=== PATIENT | male | born 1990 | race Caucasian/White ===

== ENCOUNTER 2020-08-01 14:06 | Outpatient (REF) | payer OTHER, SELFPAY ==
[2020-08-01 15:08] LABS: MANUAL DIFF FLAG NO
[2020-08-01 15:16] LABS: Basophils Percent Auto 0.2 % (0-2); Eosinophils Percent Auto 0.5 % (0-4); Hematocrit 38.7 % (42-52); Imm Gran Abs Auto 0.01 X10*3/uL (0.00-0.03); Imm Gran Pct Auto 0.2 % (0.0-0.4); Lymphocytes Absolute Auto 2.3 X10*3/uL (1.2-4.9); Mean Corpuscular HGB Conc 33.6 g/dl (31.0-36.0); Mean Corpuscular Volume 86.2 fL (80-98); Mean Platelet Volume 11.4 fL (9.4-12.4); Monocytes Absolute Auto 0.4 X10*3/uL (0.1-1.2); Monocytes Percent Auto 6.3 % (2-11); Neutrophils Absolute Auto 3.7 X10*3/uL (2.0-8.3); Neutrophils Percent Auto 56.8 % (45-73); Platelet Count 228 X10*3/uL (160-400); Red Blood Count 4.49 X10*6/uL (4.60-5.80); Red Cell Distribution Width 12.8 % (11.0-16.0); White Blood Count 6.5 X10*3/uL (4.8-10.8)
[2020-08-01 15:40] LABS: Appearance Urine CLEAR; Color Urine YELLOW; Glucose Urine UA NEG (NEG); Leukocyte Esterase Urine NEG (NEG); Nitrite Urine NEG (NEG); Specific Gravity - Urine >= 1.030 (1.005-1.025); Urine Blood NEG (NEG); Urine Ketones NEG (NEG); Urine Protein NEG (NEG-TRACE)
[2020-08-01 15:51] LABS: Anion Gap 12 (12-20); Blood Urea Nitrogen 18 mg/dL (9-16); C Reactive Protein 0.15 mg/dL (< or = 0.50); Calcium 9.4 mg/dL (8.4-10.2); Carbon Dioxide 28 mmol/L (22-29); Chloride 103 mmol/L (96-108); Estimated Glomerular Filt Rate > 60; Phosphorus 4.6 mg/dL (2.7-4.5); Potassium 4.8 mmol/L (3.3-5.1); Sodium 138 mmol/L (135-145)
[2020-08-01 16:00] LABS: Renal w Reflex Lab Use Only Order verified
[2020-08-01 16:19] LABS: Creatinine Urine 279.37 mg/dL; Microalbum/Creatinine Ratio Ur 10.7 ug/mg cr; Protein/Creatinine Ratio, Ur 0.06 (<0.2); Total Protein Urine Random 16 mg/dL (<12)
[2020-08-01 16:23] LABS: Erythrocyte Sedimentation Rate 21 MM/HR (0-15)
[2020-08-04 13:52] LABS: Complement C3 113 mg/dL (82-185); IgA 654 mg/dL (47-310); IgG 2023 mg/dL (600-1640); IgM 71 mg/dL (50-300)
[2020-08-04 14:17] LABS: Myeloperoxidase Antibody <1.0 AI; Proteinase 3 PR3 Antibodies <1.0 AI
[2020-08-04 15:27] LABS: Anti Nuclear Antibody Screen NEGATIVE (NEGATIVE)
[2020-08-04 22:57] LABS: Immunoglobulin G Subclass 1 926 mg/dL (382-929); Immunoglobulin G Subclass 2 786 mg/dL (241-700); Immunoglobulin G Subclass 3 203 mg/dL (22-178); Immunoglobulin G Total 1969 mg/dL (600-1640)
[2020-08-07 12:46] LABS: HLA B27 Negative (Negative)
== END 2020-08-01 14:07 | disposition home or self-care (01) ==
LOC: HO.LAB 14:06
PROVIDERS: Visit Provider Internal Medicine Nephrology
DX: I15.9 Secondary hypertension, unspecified (principal); E55.9 Vitamin D deficiency, unspecified; Z87.442 Personal history of urinary calculi
CPT/HCPCS: 36415; 80051; 81003; 82043; 82310; 82565; 82784; 84100; 84156; 84520; 85025; 85652; 86021; 86038; 86039; 86140; 86160; 86334; 86812

== ENCOUNTER 2020-08-05 10:34 | Outpatient (REF) | payer OTHER, SELFPAY ==
--- NOTE | ~2020-08-05 | US_ITS ---
EXAMINATION: US RETROPERITONEAL LIMITED (RENAL ONLY) CLINICAL INFORMATION: Nephrolithiasis. COMPARISON: CTA abdomen 07/23/2020. Renal ultrasound with bladder 08/02/2019. CT abdomen and pelvis 08/25/2018. TECHNIQUE: Real-time imaging of the kidneys. FINDINGS: RIGHT KIDNEY: 10.4 x 6.1 x 6.1 cm (SAG x AP x TRV). The kidney is normal in size, contour, and echogenicity. Renal cortical thickness is normal. No calculi or focal parenchymal lesions. No hydronephrosis. LEFT KIDNEY: 11.0 x 4.9 x 5.5 cm (SAG x AP x TRV). The kidney is normal in size, contour, and echogenicity. Renal cortical thickness is normal. No calculi or focal parenchymal lesions. No hydronephrosis. US/US renal BI IMPRESSION: Normal ultrasound. No ultrasound evidence of stones. No evidence of renal obstruction.
== END 2020-08-05 10:35 | disposition home or self-care (01) ==
LOC: HO.US 10:34
PROVIDERS: Visit Provider Urology
DX: N20.0 Calculus of kidney (principal); M31.4 Aortic arch syndrome [Takayasu]; M33.00 Juvenile dermatomyositis, organ involvement unspecified
CPT/HCPCS: 76775; 99212

== ENCOUNTER 2020-08-15 10:03 | Emergency (ER) | payer OTHER, SELFPAY ==
--- NOTE | ~2020-08-15 | XR_ITS ---
EXAMINATION: XR CHEST CLINICAL INFORMATION: Cough, fever COMPARISON: Chest radiograph 11/09/2011 TECHNIQUE: Portable upright AP view of the chest was obtained. FINDINGS: The lungs are clear. There is no airspace consolidation or groundglass opacity or effusion. The heart is normal in size. The vascularity is normal. The hilar and mediastinal contours and bony structures are unremarkable. XR/XR chest 1V IMPRESSION: Normal chest.
[2020-08-15 10:17] VITALS: BP 140/79; PULSE 93; RESP 16; TEMP 36.8; O2SAT 97; BMI 27.4
[2020-08-15 11:37] LABS: Influenza A PCR NEGATIVE (Negative); Influenza B PCR NEGATIVE (Negative); Resp Syncy Virus RNA Qual PCR NEGATIVE (Negative); SARS COV2 PCR INHOUSE POSITIVE (Negative)
--- NOTE | 2020-08-15 11:42 | ED.GENADULT ---
HPI - General Adult General Chief complaint: General Medical Stated complaint: FEVER COUGH BODY ACHES Time Seen by Provider: 08/15/20 10:43 Source: patient Mode of arrival: ambulatory Limitations: no limitations History of Present Illness HPI narrative: 30-year-old below noted past medical history presenting with now day 2 of body aches, runny nose, chills and congestion with mild cough today. Does not know of any overt COVID contacts however he has flu in the past and feels like that. There is no chest pain, abdominal pain, nausea or vomiting did have 1 episode of diarrhea this morning. Onset (ago): day(s) Severity: moderate Quality: aching Pain Consistency: intermittent Relieving factors: none Exacerbating factors: none Treatments prior to arrival: none Related Data Home Medications Medication Instructions Recorded Confirmed amlodipine 10 mg tablet 10 mg PO DAILY 08/05/20 chlorthalidone 25 mg tablet 25 mg PO DAILY 08/05/20 losartan 100 mg tablet 100 mg PO DAILY 08/05/20 metoprolol tartrate 25 mg tablet 25 mg PO DAILY 08/05/20 prednisone 20 mg tablet 60 mg PO DAILY tab 08/05/20 08/05/20 pyridoxine (vitamin B6) 50 mg 50 mg PO DAILY 08/05/20 capsule Previous Rx's Medication Instructions Recorded azithromycin [Zithromax Z-Oswald] 250 mg PO DAILY 5 Days #6 tab 08/15/20 Allergies Allergy/AdvReac Type Severity Reaction Status Date / Time lisinopril Allergy Unknown cough Verified 11/12/19 00:00 No Known Allergies Allergy Unverified 03/13/20 16:16 [No Known Allergies*] N.K.D.A Allergy Unknown Uncoded 08/16/19 00:00 Review of Systems Review of Systems: Constitutional: No Weight loss, No Fever, No Chills, No Night Sweats, No Fatigue, No Malaise ENT/Mouth: No Hearing loss, No Ear Pain, + Nasal Congestion, No Sinus Pain, No Hoarseness, No sore throat, + Rhinorrhea, No Swallowing Difficulty Eyes: No Eye Pain, No Swelling, No Redness, No Foreign Body, No Discharge, No Vision Changes Cardiovascular: No Chest Pain, No SOB, No Dyspnea on Exertion, No Orthopnea, No Edema, No Palpitations Respiratory: N+ mild dry cough, No Sputum, No Wheezing, No Dyspnea Gastrointestinal: No Nausea, No Vomiting, No Diarrhea, No Constipation, No abdominal Pain, No Hematochezia, No Melena Genitourinary: No Urinary Frequency, No Hematuria, No Urinary Incontinence, No Urgency, No Flank Pain, No Urinary Flow Changes, No Hesitancy Musculoskeletal: No joint pain, + Myalgias, No Joint Swelling Skin: No Skin Lesions, No rash Neuro: No Weakness, No Numbness, No Paresthesias, No Loss of Consciousness, No Dizziness, No Headache Psych: No Social Issues Heme/Lymph: No Bruising, No Bleeding,No Lymphadenopathy Endocrine: No Polyuria, No Polydipsia, No Temperature Intolerance Yes all other systems are reviewed and are negative [facility] Past Medical History Medical History (Updated 08/15/20 @ 11:52 by Wally Tovar NP) HTN (hypertension) Juvenile dermatomyositis Kidney stones Family History Family History (Updated 08/05/20 @ 13:38 by Dione Bettencourt CMA) Father HTN (hypertension) Diabetes Social History Social History (Updated 08/05/20 @ 13:39 by Dione Bettencourt CMA) Alcohol intake: current Smoking Status: Current every day smoker Tobacco Type: Cigarette Cigarettes Per Day: 1 Years Smoked: 6 Advance Directives: No Advance Directives Information Provided: No Physical Exam Vital Signs: Vital Signs: Last Vital Signs Temp 98.3 F 08/15/20 10:17 Pulse 93 08/15/20 10:17 Resp 16 08/15/20 10:17 BP 140/79 H 08/15/20 10:17 Pulse Ox 97 08/15/20 10:17 Body Mass Index 27.4 Reviewed Const: General: cooperative; No acute distress or intoxicated appearing Nutritional Appearance: average body habitus Orientation/consciousness: patient oriented x3 HENMT: Head: Yes normal to inspection Ears: hearing grossly normal bilaterally Eyes: General: appearance normal, both eyes and all related structures Visual Anthony: normal visual anthony by confrontation Neck: Neck: Yes normal visual inspection, No positive Brudzinski's sign, No positive Kernig's sign and No tender Thyroid: Thyroid normal Chest: Chest palpation & inspection: normal inspection of the chest Resp: Effort & Inspection: normal respiratory effort Auscultation: clear to auscultation bilaterally Cardio: Jugular venous distension: no JVD Rhythm: regular rhythm Heart sounds: S1 normal heart sound present and S2 normal heart sound present GI: Inspection: Yes normal to inspection Percussion: Yes normal to percussion Auscultation: normal bowel sounds : General: Yes no CVA tenderness Back/Spine/Pelvis: Back: no CVA tenderness Skin: General skin exam: no rashes or lesions noted Neuro: General: patient oriented x3 Extrem: General: Yes normal to inspection Medical Decision Making Lab Data Labs: Lab Results 08/15/20 Range/Units 10:54 Coronavirus (PCR) POSITIVE A (Negative) Influenza Type A (PCR) NEGATIVE (Negative) Influenza Type B (PCR) NEGATIVE (Negative) RSV RNA Qual (PCR) NEGATIVE (Negative) Imaging Data Chest x-ray: Radiologist's impression: [address] [id number] ReportSigned Patient: Effie Duarte#: [id number]: 1990Acct:[id number]/Sex: 30 / MADM Date: 08/15/20Loc: EDAttending Dr: Ordering Physician: Wally Tovar NP Date of Service: 08/15/20 Procedure(s): XR chest 1V Accession Number(s): [id number] cc: Wally Tovar HYPERTRICHOLOGIST~ EXAMINATION: XR CHEST CLINICAL INFORMATION: Cough, fever COMPARISON: Chest radiograph 11/09/2011 TECHNIQUE: Portable upright AP view of the chest was obtained. FINDINGS: The lungs are clear. There is no airspace consolidation or groundglass opacity or effusion. The heart is normal in size. The vascularity is normal. The hilar and mediastinal contours and bony structures are unremarkable. XR/XR chest 1V IMPRESSION: Normal chest. Dictated By:PANCHO SKELTON MDSigned By:<Electronically signed by PANCHO SKELTON MD in OV>08/15/20 1121 DD/ 1043TD/TT: Rn International: AIDEE Discharge Plan Discharge Clinical Impression: COVID-19, Cough Patient Disposition: Home, Self-Care Instructions: Acute Cough (ED), COVID-19 (Coronavirus Disease 2019) (ED) Additional Instructions: You have COVID-19 Your chest x-ray did not show any acute findings/pneumonia At this time you will be okay for discharge. Please plan for self quarantine for up to 14 days. Do not expose yourself to others. You may not go to work. If testing does come back negative you may return to activities as long as you are no longer having any symptoms for at least 3 days. Please continue to follow cold instructions and wash your hands frequently. You may take Tylenol as directed on the bottle for pain or fever. CDC Guidelines for home isolation: - Stay away from others - WEAR A MASK if you are sick AND STAY HOME - Cover your mouth and nose with a tissue when you cough or sneeze. Dispose of tissues in a lined trash can and wash your hands immediately with soap and water for at least 20 seconds. If soap and water are not available, clean hands with alcohol-based hand senior climate advisor that contains at least 60% alcohol. - Clean your hands often with soap and water for at least 20 seconds - Avoid touching your eyes, nose and mouth with unwashed hands - Do not share dishes, drinking glasses, cups, eating utensils, towels, or bedding with other people in your home. After using these items, wash them thoroughly with soap and water or put in the cement mason apprentice. - Clean high-touch surfaces in your isolation area ( sick room and bathroom) every day; let a caregiver clean and disinfect high-touch surfaces in other areas of the home. Clean the area or item with soap and water or another detergent if it is dirty. Then, use a household disinfectant. - Limit contact with pets and animals: If you must care for a pet, wash your hands before and after interacting with them Prescriptions: New azithromycin [Zithromax Z-Oswald] 250 mg tablet 250 mg PO DAILY 5 Days Qty: 6 RF: 0 No Action losartan 100 mg tablet 100 mg PO DAILY RF: 0 amlodipine 10 mg tablet 10 mg PO DAILY RF: 0 chlorthalidone 25 mg tablet 25 mg PO DAILY RF: 0 metoprolol tartrate 25 mg tablet 25 mg PO DAILY RF: 0 Vitamin B-6 50 mg capsule 50 mg PO DAILY RF: 0 prednisone 20 mg tablet 60 mg PO DAILY RF: 0 Referrals: Physician,Unknown [Primary Care Provider] - 5 days (Phone visit with her primary care doctor) Interventions: ED Discharge Assessment Last Done: 08/15/20 12:02 Discharge Date/Time: 08/15/20 12:02
== END 2020-08-15 12:02 | disposition home or self-care (01) ==
PROVIDERS: Nurse Practitioner Primary Care; Emergency Provider Emergency Medicine
DX: U07.1 COVID-19 (principal); R50.9 Fever, unspecified; R05 Cough; M79.10 Myalgia, unspecified site; Z79.899 Other long term (current) drug therapy; F17.200 Nicotine dependence, unspecified, uncomplicated; Z71.6 Tobacco abuse counseling
CPT/HCPCS: 0241U; 36415; 71045; 99283

== ENCOUNTER → 2020-08-21 13:11 | Outpatient (BNVA) | payer OTHER, SELFPAY | PROVIDERS: PCP Nurse Practitioner Family; Visit Provider Urology ==

== ENCOUNTER 2020-09-03 14:50 | Outpatient (REF) | payer OTHER, SELFPAY ==
--- NOTE | ~2020-09-03 | MR_ITS ---
STUDY PERFORMED: MRA CHEST WITH AND WITHOUT CONTRAST HISTORY: Concern for vasculitis. COMPARISON: CTA abdomen on 07/23/2020 DESCRIPTION: Routine chest MRA protocol without and with contrast was performed. 20 mL of Gadavist was administered. Images were evaluated on independent dedicated 3-D workstation and 3-D images were reconstructed with concurrent radiologist supervision and subsequently interpreted. FINDINGS: VASCULAR: 1. Ascending thoracic aorta: Normal caliber, widely patent. No evidence of wall thickening. 2. Thoracic aortic arch: Normal caliber, widely patent. No evidence of wall thickening. 3. Descending thoracic aorta: Normal caliber, widely patent. No evidence of wall thickening. 4. Pulmonary arteries: Patent centrally. Normal caliber. 5. Great vessels: The origin of the great vessels are normal caliber and widely patent. No evidence of wall thickening. NON-VASCULAR: LUNGS: The lungs are clear with no evidence of inflammation. MEDIASTINUM: The mediastinum is normal. Central vascular structures are unremarkable. No hilar or mediastinal lymphadenopathy. PERICARDIUM/PLEURA: There is no significant effusion. No pleural mass or thickening. CHEST WALL/AXILLA: Unremarkable. UPPER ABDOMEN: Unremarkable. OSSEOUS STRUCTURES: Unremarkable. MR/MR angio chest wo/w con IMPRESSION: Normal MRA of the chest.
== END 2020-09-03 14:51 | disposition home or self-care (01) ==
LOC: HO.MRI 14:50
PROVIDERS: Visit Provider Student in an Organized Health Care Education/Training Program
DX: M31.4 Aortic arch syndrome [Takayasu] (principal)
CPT/HCPCS: 71555; A9585

== ENCOUNTER 2020-09-05 16:24 | Outpatient (REF) | payer OTHER, SELFPAY ==
--- NOTE | ~2020-09-05 | MR_ITS ---
EXAMINATION: MR ANGIOGRAPHY ABDOMEN WITHOUT AND WITH CONTRAST CLINICAL INFORMATION: Aortic arch syndrome (Takayasu). COMPARISON: CT abdomen and pelvis 08/25/2018, CT angiography 07/23/2020. TECHNIQUE: Routine MR angiography of the abdomen was performed prior to and following the uneventful intravenous administration of 15 mL Gadavist intravenous contrast. Images were evaluated on independent dedicated 3-D workstation and 3-D images were reconstructed with concurrent radiologist supervision and subsequently interpreted. FINDINGS: VASCULAR: The abdominal aorta is normal in course and caliber. There is no abnormal wall thickening, inflammatory changes, aneurysm, dissection or other findings to suggest an acute aortic syndrome. The bilateral common, internal and external iliac arteries have normal flow-related enhancement and are without significant stenosis. There is no evidence of wall thickening or inflammatory changes. The celiac trunk and its branches are well opacified. On sagittal reformatted images, there is questionable moderate stenosis at the origin of the celiac trunk, though this could be secondary to [id number]. No abnormal thickening of the celiac or its branches. No pseudoaneurysm. The superior mesenteric artery and its branches are well opacified. There is no wall thickening or inflammatory changes. Normal flow-related enhancement of the inferior mesenteric artery. There are single bilateral renal arteries. Origins are widely patent. The previously described wall thickening is no longer appreciated. On coronal reformatted images, there is a possible mild/moderate stenosis of a branch of the right renal artery at the hilum (see durbin image). Otherwise, no definite stenosis, pseudoaneurysm, or other anomaly identified. There is normal flow-related enhancement of the inferior vena cava and iliac veins. Incidental note of a circumaortic left renal vein. Normal flow-related enhancement of the aorta and its branch vessels. NONVASCULAR: The liver is overall normal in size and signal characteristics. No focal hepatic lesions or intrahepatic duct dilation are identified. The gallbladder is unremarkable. Spleen and pancreas are normal in signal characteristics and there is no pancreatic duct dilation. The kidneys are normal in size and overall signal characteristics. There is no hydronephrosis or renal lesion identified. The adrenal glands are unremarkable. The imaged small large bowel are nondilated. No pathologically enlarged lymph nodes are identified and there is no free intra-abdominal fluid. MR/MR angio abdomen wo/w con IMPRESSION: 1. Patent abdominopelvic vasculature. 2. There is questionable moderate stenosis at the celiac origin, though this could be secondary to [id number] during image acquisition. 3. There is possible mild/moderate stenosis of a branch of the right renal artery at the hilum. Otherwise, no definite stenoses of the renal arteries are appreciated and no inflammatory changes to suggest vasculitis are seen at this time. Further evaluation could be considered with CT angiography given its greater spatial resolution.
== END 2020-09-05 16:25 | disposition home or self-care (01) ==
LOC: HO.MRI 16:24
PROVIDERS: Visit Provider Student in an Organized Health Care Education/Training Program
DX: M31.4 Aortic arch syndrome [Takayasu] (principal)
CPT/HCPCS: 74185; A9585

== ENCOUNTER 2020-09-15 16:20 | Outpatient (REF) | payer OTHER, SELFPAY ==
[2020-09-15 18:51] LABS: MANUAL DIFF FLAG NO
[2020-09-15 18:55] LABS: Basophils Percent Auto 0.2 % (0-2); Eosinophils Absolute Auto 0.1 X10*3/uL (0.0-0.4); Eosinophils Percent Auto 0.5 % (0-4); Hematocrit 34.5 % (42-52); Hemoglobin 12.1 g/dl (14.0-18.0); Imm Gran Abs Auto 0.05 X10*3/uL (0.00-0.03); Imm Gran Pct Auto 0.4 % (0.0-0.4); Lymphocytes Absolute Auto 2.6 X10*3/uL (1.2-4.9); Mean Corpuscular HGB Conc 35.1 g/dl (31.0-36.0); Mean Corpuscular Hemoglobin 30.6 pg (27.0-33.0); Mean Corpuscular Volume 87.3 fL (80-98); Mean Platelet Volume 11.3 fL (9.4-12.4); Monocytes Absolute Auto 0.8 X10*3/uL (0.1-1.2); Monocytes Percent Auto 6.6 % (2-11); Neutrophils Absolute Auto 7.9 X10*3/uL (2.0-8.3); Neutrophils Percent Auto 69.3 % (45-73); Platelet Count 264 X10*3/uL (160-400); Red Blood Count 3.95 X10*6/uL (4.60-5.80); Red Cell Distribution Width 13.2 % (11.0-16.0); White Blood Count 11.4 X10*3/uL (4.8-10.8)
[2020-09-15 19:15] LABS: Glucose Urine UA NEG (NEG); Leukocyte Esterase Urine NEG (NEG); Nitrite Urine NEG (NEG); PH 6.5 (5.0-8.0); Specific Gravity - Urine 1.025 (1.005-1.025); Urine Blood NEG (NEG); Urine Ketones NEG (NEG); Urine Protein NEG (NEG-TRACE)
[2020-09-15 19:18] LABS: Alanine Aminotransferase 22 U/L (0-40); Albumin Level 4.2 g/dL (3.5-5.0); Alkaline Phosphatase 22 U/L (39-117); Anion Gap 15 (12-20); Aspartate Amino Transferase 17 U/L (5-37); Bilirubin Total 0.5 mg/dL (0.0-1.0); Blood Urea Nitrogen 31 mg/dL (9-16); C Reactive Protein 0.12 mg/dL (< or = 0.50); Calcium 9.5 mg/dL (8.4-10.2); Carbon Dioxide 29 mmol/L (22-29); Chloride 99 mmol/L (96-108); Estimated Glomerular Filt Rate > 60; Glucose Random 79 mg/dL (60-115); Sodium 139 mmol/L (135-145); Total Protein 7.4 g/dL (6.5-8.0)
[2020-09-15 19:18] LABS: Appearance Urine CLEAR; Color Urine YELLOW
[2020-09-15 19:27] LABS: Creatinine Urine 201.42 mg/dL; Protein/Creatinine Ratio, Ur 0.07 (<0.2); Total Protein Urine Random 14 mg/dL (<12)
[2020-09-15 19:52] LABS: RBC Urine 0 /HPF (0); Squamous Epithelial Cell Urine TRACE /LPF; WBC Urine 0 /HPF (0-4)
[2020-09-15 20:21] LABS: Erythrocyte Sedimentation Rate 14 MM/HR (0-15)
[2020-09-17 13:01] LABS: Myeloperoxidase Antibody <1.0 AI; Proteinase 3 PR3 Antibodies <1.0 AI
[2020-09-17 15:06] LABS: Prot Elec - Albumin 3.9 g/dL (3.8-4.8); Prot Elec - Alpha1 0.3 g/dL (0.2-0.3); Prot Elec - Alpha2 0.8 g/dL (0.5-0.9); Prot Elec - Beta 1 0.5 g/dL (0.4-0.6); Prot Elec - Beta 2 0.5 g/dL (0.2-0.5); Prot Elec - Gamma 1.2 g/dL (0.8-1.7); Prot Elec - Total Protein 7.2 g/dL (6.1-8.1)
[2020-09-19 11:42] LABS: IgA 526 mg/dL (47-310); IgG 1346 mg/dL (600-1640); IgM 74 mg/dL (50-300)
[2020-09-22 07:02] LABS: Aldolase 6.1 U/L (<=8.1)
== END 2020-09-15 16:21 | disposition home or self-care (01) ==
LOC: HO.LAB 16:20
PROVIDERS: Visit Provider Student in an Organized Health Care Education/Training Program
DX: M33.00 Juvenile dermatomyositis, organ involvement unspecified (principal); M31.6 Other giant cell arteritis
CPT/HCPCS: 36415; 80053; 81001; 82085; 82550; 82784; 84155; 84156; 84165; 85025; 85652; 86021; 86140; 86334

== ENCOUNTER → 2020-09-18 10:28 | Outpatient (BNVA) | payer OTHER, SELFPAY | PROVIDERS: PCP Nurse Practitioner Family; Visit Provider Student in an Organized Health Care Education/Training Program | DX: M31.4 Aortic arch syndrome [Takayasu] (principal); M33.00 Juvenile dermatomyositis, organ involvement unspecified | CPT/HCPCS: 99212 ==

== ENCOUNTER 2020-10-25 02:13 | Emergency (ER) | payer OTHER, SELFPAY ==
[2020-10-25] VITALS (18 sets, daily range): BP systolic 141–175; BP diastolic 89–115; PULSE 76–123; RESP 14–20; TEMP 36.5–36.8; O2SAT 16–100; BMI 29.9
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
[2020-10-25] MEDS: Morphine Sulfate 4 MG/ML CARTRIDGE IVPUSH ×2 (02:48→05:37)
[2020-10-25 02:51] LABS: Basophils Absolute Auto 0.1 X10*3/uL (0.0-0.2); Basophils Percent Auto 0.6 % (0-2); Eosinophils Absolute Auto 0.1 X10*3/uL (0.0-0.4); Eosinophils Percent Auto 0.8 % (0-4); Hemoglobin 12.5 g/dl (14.0-18.0); Imm Gran Abs Auto 0.01 X10*3/uL (0.00-0.03); Imm Gran Pct Auto 0.1 % (0.0-0.4); Lymphocytes Percent Auto 34.7 % (20-40); MANUAL DIFF FLAG NO; Mean Corpuscular HGB Conc 32.9 g/dl (31.0-36.0); Mean Corpuscular Hemoglobin 29.7 pg (27.0-33.0); Mean Corpuscular Volume 90.3 fL (80-98); Mean Platelet Volume 10.7 fL (9.4-12.4); Monocytes Absolute Auto 0.8 X10*3/uL (0.1-1.2); Monocytes Percent Auto 9.6 % (2-11); Neutrophils Absolute Auto 4.6 X10*3/uL (2.0-8.3); Neutrophils Percent Auto 54.2 % (45-73); Platelet Count 253 X10*3/uL (160-400); Red Blood Count 4.21 X10*6/uL (4.60-5.80); Red Cell Distribution Width 13.4 % (11.0-16.0); White Blood Count 8.5 X10*3/uL (4.8-10.8)
[2020-10-25 03:06] LABS: COVID-19 Test Negative (Negative)
[2020-10-25 03:12] LABS: Alanine Aminotransferase 16 U/L (0-40); Albumin Level 4.5 g/dL (3.5-5.0); Alkaline Phosphatase 29 U/L (39-117); Anion Gap 18 (12-20); Aspartate Amino Transferase 22 U/L (5-37); Bilirubin Total 0.2 mg/dL (0.0-1.0); Blood Urea Nitrogen 17 mg/dL (9-16); Calcium 9.4 mg/dL (8.4-10.2); Carbon Dioxide 21 mmol/L (22-29); Chloride 106 mmol/L (96-108); Estimated Glomerular Filt Rate > 60; Glucose Random 95 mg/dL (60-115); Potassium 3.5 mmol/L (3.3-5.1); Sodium 141 mmol/L (135-145)
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
[2020-10-25] MEDS: Diphth,Pertus(ACell),Tet Adult 0.5 ML SYRINGE IM (03:35)
[2020-10-25] MEDS: ceFAZolin Sodium/Dextrose,Iso 2 GM/50 ML PIGGYBACK IV (03:35)
[2020-10-25] MEDS: Lidocaine HCl 2 % MPF 5 ML VIAL 10 ML INFILTRATI (05:38)
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
== END 2020-10-25 07:57 | disposition home or self-care (01) ==
PROVIDERS: Emergency Provider Emergency Medicine
DX: S81.831A Puncture wound without foreign body, right lower leg, initial encounter (principal); M79.604 Pain in right leg; X95.9XXA Assault by unspecified firearm discharge, initial encounter; Y93.9 Activity, unspecified; Y92.9 Unspecified place or not applicable; Y99.9 Unspecified external cause status; Z20.822 Contact with and (suspected) exposure to COVID-19; F17.210 Nicotine dependence, cigarettes, uncomplicated; Z71.6 Tobacco abuse counseling; Z79.899 Other long term (current) drug therapy
CPT/HCPCS: 12002; 36415; 71045; 73552; 73590; 73620; 74018; 80053; 85025; 86850; 86900; 86901; 87635; 90471; 90715; 93005; 96361; 96365; 96375; 99285; J0690; J2270

== ENCOUNTER → 2020-11-03 14:04 | Outpatient (BNVA) | payer OTHER, SELFPAY | PROVIDERS: PCP Nurse Practitioner Family; Visit Provider Surgery | DX: S81.839A Puncture wound without foreign body, unspecified lower leg, initial encounter (principal); W34.00XA Accidental discharge from unspecified firearms or gun, initial encounter | CPT/HCPCS: 11042; 99202 ==

== ENCOUNTER → 2020-11-20 16:04 | Outpatient (BNVA) | payer OTHER, SELFPAY | PROVIDERS: PCP Nurse Practitioner Family; Visit Provider Student in an Organized Health Care Education/Training Program | DX: M31.4 Aortic arch syndrome [Takayasu] (principal); M33.00 Juvenile dermatomyositis, organ involvement unspecified | CPT/HCPCS: 99212 ==

== ENCOUNTER 2020-12-30 10:51 | Outpatient (REF) | payer OTHER, SELFPAY ==
[2020-12-30 11:41] LABS: Urine Cytology See Pathology rpt
[2020-12-30 11:46] LABS: MANUAL DIFF FLAG NO
[2020-12-30 11:50] LABS: Basophils Percent Auto 0.5 % (0-2); Eosinophils Absolute Auto 0.1 X10*3/uL (0.0-0.4); Eosinophils Percent Auto 1.7 % (0-4); Hematocrit 38.2 % (42-52); Hemoglobin 12.7 g/dl (14.0-18.0); Imm Gran Abs Auto 0.01 X10*3/uL (0.00-0.03); Imm Gran Pct Auto 0.2 % (0.0-0.4); Lymphocytes Absolute Auto 2.1 X10*3/uL (1.2-4.9); Lymphocytes Percent Auto 36.1 % (20-40); Mean Corpuscular HGB Conc 33.2 g/dl (31.0-36.0); Mean Corpuscular Hemoglobin 29.1 pg (27.0-33.0); Mean Corpuscular Volume 87.4 fL (80-98); Monocytes Absolute Auto 0.5 X10*3/uL (0.1-1.2); Monocytes Percent Auto 7.7 % (2-11); Neutrophils Absolute Auto 3.1 X10*3/uL (2.0-8.3); Neutrophils Percent Auto 53.8 % (45-73); Platelet Count 240 X10*3/uL (160-400); Red Blood Count 4.37 X10*6/uL (4.60-5.80); White Blood Count 5.8 X10*3/uL (4.8-10.8)
[2020-12-30 12:07] LABS: Glucose Urine UA NEG (NEG); Leukocyte Esterase Urine NEG (NEG); Nitrite Urine NEG (NEG); Urine Blood NEG (NEG); Urine Ketones NEG (NEG); Urine Protein NEG (NEG-TRACE)
[2020-12-30 12:09] LABS: Appearance Urine CLEAR; Color Urine YELLOW
[2020-12-30 12:11] LABS: Creatinine Urine 186.66 mg/dL; Protein/Creatinine Ratio, Ur 0.06 (<0.2); Total Protein Urine Random 11 mg/dL (<12)
[2020-12-30 12:16] LABS: Alanine Aminotransferase 21 U/L (0-40); Albumin Level 4.3 g/dL (3.5-5.0); Alkaline Phosphatase 26 U/L (39-117); Anion Gap 12 (12-20); Aspartate Amino Transferase 28 U/L (5-37); Bilirubin Total 0.4 mg/dL (0.0-1.0); Blood Urea Nitrogen 15 mg/dL (9-16); C Reactive Protein 0.17 mg/dL (< or = 0.50); Calcium 9.7 mg/dL (8.4-10.2); Carbon Dioxide 27 mmol/L (22-29); Chloride 104 mmol/L (96-108); Cholesterol 192 mg/dL; Estimated Glomerular Filt Rate > 60; Glucose Fasting 87 mg/dL (60-99); HDL Cholesterol 46 mg/dL; LDL Cholesterol Calculated 124 mg/dl; Potassium 4.5 mmol/L (3.3-5.1); Sodium 138 mmol/L (135-145); Total Protein 7.7 g/dL (6.5-8.0); Triglycerides 111 mg/dL
[2020-12-30 12:56] LABS: TSH reflex Free T4 0.42 uIU/mL (0.32-4.0)
[2020-12-30 13:04] LABS: RBC Urine 0 /HPF (0); Squamous Epithelial Cell Urine TRACE /LPF; WBC Urine 0-2 /HPF (0-4)
[2020-12-30 13:10] LABS: Erythrocyte Sedimentation Rate 11 MM/HR (0-15)
[2021-01-01 13:17] LABS: Myeloperoxidase Antibody <1.0 AI; Proteinase 3 PR3 Antibodies <1.0 AI
== END 2020-12-30 10:52 | disposition home or self-care (01) ==
LOC: HO.LAB 10:51
PROVIDERS: PCP Nurse Practitioner Family; Referring Provider Nurse Practitioner Family; Visit Provider Student in an Organized Health Care Education/Training Program
DX: Z00.00 Encounter for general adult medical examination without abnormal findings (principal); M31.6 Other giant cell arteritis; R31.29 Other microscopic hematuria
CPT/HCPCS: 36415; 80053; 80061; 81001; 84156; 84443; 85025; 85652; 86021; 86140; 87086; 88112

== ENCOUNTER → 2020-12-31 08:09 | Outpatient (BNVA) | payer OTHER, SELFPAY | PROVIDERS: Visit Provider Student in an Organized Health Care Education/Training Program | DX: M31.4 Aortic arch syndrome [Takayasu] (principal); M33.00 Juvenile dermatomyositis, organ involvement unspecified | CPT/HCPCS: 99212 ==

== ENCOUNTER 2021-02-10 14:51 | Outpatient (REF) | payer OTHER, SELFPAY ==
[2021-02-10 15:23] LABS: MANUAL DIFF FLAG NO
[2021-02-10 15:31] LABS: Hematocrit 41.1 % (42-52); Imm Gran Pct Auto 0.1 % (0.0-0.4); Mean Corpuscular HGB Conc 34.1 g/dl (31.0-36.0); Mean Corpuscular Hemoglobin 28.9 pg (27.0-33.0); Mean Corpuscular Volume 84.9 fL (80-98); Mean Platelet Volume 10.9 fL (9.4-12.4); Neutrophils Percent Auto 71.1 % (45-73); Platelet Count 245 X10*3/uL (160-400); Red Blood Count 4.84 X10*6/uL (4.60-5.80); Red Cell Distribution Width 12.5 % (11.0-16.0); White Blood Count 7.8 X10*3/uL (4.8-10.8)
[2021-02-10 15:32] LABS: Basophils Percent Auto 0.4 % (0-2); Eosinophils Percent Auto 0.3 % (0-4); Imm Gran Abs Auto 0.01 X10*3/uL (0.00-0.03); Lymphocytes Absolute Auto 1.7 X10*3/uL (1.2-4.9); Lymphocytes Percent Auto 21.6 % (20-40); Monocytes Absolute Auto 0.5 X10*3/uL (0.1-1.2); Monocytes Percent Auto 6.5 % (2-11); Neutrophils Absolute Auto 5.6 X10*3/uL (2.0-8.3)
[2021-02-10 15:56] LABS: Alanine Aminotransferase 19 U/L (0-40); Albumin Level 4.5 g/dL (3.5-5.0); Alkaline Phosphatase 27 U/L (39-117); Anion Gap 11 (12-20); Aspartate Amino Transferase 25 U/L (5-37); Bilirubin Total 0.3 mg/dL (0.0-1.0); Blood Urea Nitrogen 15 mg/dL (9-16); C Reactive Protein 0.11 mg/dL (< or = 0.50); Carbon Dioxide 28 mmol/L (22-29); Chloride 104 mmol/L (96-108); Estimated Glomerular Filt Rate > 60; Glucose Random 64 mg/dL (60-115); Potassium 4.4 mmol/L (3.3-5.1); Sodium 139 mmol/L (135-145); Total Protein 8.2 g/dL (6.5-8.0)
[2021-02-10 16:09] LABS: Erythrocyte Sedimentation Rate 11 MM/HR (0-15)
[2021-02-10 16:39] LABS: Glucose Urine UA NEG (NEG); Leukocyte Esterase Urine NEG (NEG); Nitrite Urine NEG (NEG); Specific Gravity - Urine 1.015 (1.005-1.025); Urine Blood NEG (NEG); Urine Ketones NEG (NEG); Urine Protein TRACE MG/DL (NEG-TRACE)
[2021-02-10 16:49] LABS: Appearance Urine CLEAR; Color Urine YELLOW
[2021-02-10 17:49] LABS: RBC Urine 0-2 /HPF (0); Squamous Epithelial Cell Urine TRACE /LPF; WBC Urine 0-2 /HPF (0-4)
== END 2021-02-10 14:52 | disposition home or self-care (01) ==
LOC: HO.LAB 14:51
PROVIDERS: Visit Provider Student in an Organized Health Care Education/Training Program
DX: M31.4 Aortic arch syndrome [Takayasu] (principal)
CPT/HCPCS: 36415; 80053; 81001; 82085; 82550; 85025; 85652; 86140

== ENCOUNTER → 2021-02-11 12:41 | Outpatient (BNVA) | payer OTHER, SELFPAY | PROVIDERS: PCP Nurse Practitioner Family; Visit Provider Student in an Organized Health Care Education/Training Program | DX: M31.4 Aortic arch syndrome [Takayasu] (principal); M33.00 Juvenile dermatomyositis, organ involvement unspecified | CPT/HCPCS: 99212 ==

== ENCOUNTER 2021-10-27 | Outpatient (REF) | payer OTHER, SELFPAY ==
[2021-10-28 13:14] LABS: Influenza A PCR NEGATIVE (Negative); Influenza B PCR NEGATIVE (Negative); Resp Syncy Virus RNA Qual PCR NEGATIVE (Negative); SARS COV2 PCR INHOUSE NEGATIVE (Negative)
== END 2021-10-27 00:01 | disposition home or self-care (01) ==
LOC: HO.LNP
PROVIDERS: Visit Provider Family Medicine
DX: Z20.822 Contact with and (suspected) exposure to COVID-19 (principal); B34.9 Viral infection, unspecified
CPT/HCPCS: 0241U

== ENCOUNTER 2021-12-23 23:17 | Emergency (ER) | payer OTHER, SELFPAY ==
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
[2021-12-23 23:32] VITALS: BP 146/96; PULSE 67; RESP 18; TEMP 37; O2SAT 99; BMI 26.6
[2021-12-23 23:32] LABS: Basophils Percent Auto 0.5 % (0-2); Eosinophils Absolute Auto 0.1 X10*3/uL (0.0-0.4); Hematocrit 36.9 % (42.0-52.0); Hemoglobin 12.6 g/dl (14.0-18.0); Imm Gran Abs Auto 0.01 X10*3/uL (0.00-0.03); Imm Gran Pct Auto 0.1 % (0.0-0.4); Lymphocytes Absolute Auto 1.5 X10*3/uL (1.2-4.9); Lymphocytes Percent Auto 18.2 % (20-40); MANUAL DIFF FLAG NO; Mean Corpuscular HGB Conc 34.1 g/dl (31.0-36.0); Mean Corpuscular Volume 84.8 fL (80.0-98.0); Mean Platelet Volume 10.6 fL (9.4-12.4); Monocytes Absolute Auto 0.4 X10*3/uL (0.1-1.2); Monocytes Percent Auto 4.3 % (2-11); Neutrophils Absolute Auto 6.3 x10*3/uL (2.0-8.3); Neutrophils Percent Auto 75.9 % (45-73); Platelet Count 228 X10*3/uL (160-400); Red Blood Count 4.35 X10*6/uL (4.60-5.80); Red Cell Distribution Width 12.8 % (11.0-16.0); White Blood Count 8.3 X10*3/uL (4.8-10.8)
[2021-12-23 23:52] LABS: Troponin-I High Sensitivity < 3.5 ng/L (<3.5-35.0)
[2021-12-23 23:55] LABS: Alanine Aminotransferase 21 U/L (0-40); Albumin Level 4.3 g/dL (3.5-5.0); Alkaline Phosphatase 31 U/L (39-117); Anion Gap 12 (12-20); Aspartate Amino Transferase 32 U/L (5-37); Bilirubin Total 0.2 mg/dL (0.0-1.0); Blood Urea Nitrogen 20 mg/dL (9-16); Calcium 9.3 mg/dL (8.4-10.2); Carbon Dioxide 27 mmol/L (22-29); Chloride 105 mmol/L (96-108); Creatinine Clr Calc Pharmacy 83.1; Estimated Glomerular Filt Rate > 60; Glucose Random 99 mg/dL (60-115); Sodium 140 mmol/L (135-145); Total Protein 7.9 g/dL (6.5-8.0)
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
[2021-12-24] MEDS: iohexoL 350 MG/ML 100 ML INFUS..BTL 85 ML IV (01:32)
[2021-12-24 01:44] VITALS: PULSE 84
[2021-12-24 02:08] LABS: C Reactive Protein 0.18 mg/dL (< or = 0.50)
[2021-12-24] MEDS: Ketorolac Tromethamine 30 MG/ML VIAL IVPUSH (02:15)
[2021-12-24 02:19] VITALS: BP 135/85; PULSE 60; RESP 16; TEMP 36; O2SAT 98
[2021-12-24 02:23] LABS: Erythrocyte Sedimentation Rate 10 MM/HR (0-15)
== END 2021-12-24 03:32 | disposition home or self-care (01) ==
PROVIDERS: Nurse Practitioner Family; Emergency Provider Internal Medicine
DX: R07.89 Other chest pain (principal); I10 Essential (primary) hypertension; M31.4 Aortic arch syndrome [Takayasu]; M33.00 Juvenile dermatomyositis, organ involvement unspecified; F12.90 Cannabis use, unspecified, uncomplicated
CPT/HCPCS: 36415; 71275; 80053; 84484; 85025; 85652; 86140; 93005; 96374; 99284; 99285; J1885; Q9967

== ENCOUNTER 2022-03-17 17:11 | Emergency (ER) | payer OTHER, SELFPAY ==
--- NOTE | ~2022-03-17 | XR_ITS ---
EXAMINATION: XR LUMBOSACRAL SPINE CLINICAL INFORMATION: Low back pain for 3 days after lifting heavy object COMPARISON: None TECHNIQUE: Three views of the lumbosacral spine. FINDINGS: The vertebral bodies and posterior elements are normal. The disc spaces are preserved and the vertebral alignment is normal. The paraspinal soft tissues are normal. XR/XR lumbar spine 2-3V IMPRESSION: Unremarkable examination.
[2022-03-17 18:03] VITALS: BP 163/107; PULSE 67; RESP 18; TEMP 36.4; O2SAT 100; BMI 27.4
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
[2022-03-17] MEDS: Ketorolac Tromethamine 15 MG/ML VIAL IM (20:22)
--- NOTE | 2022-03-17 20:27 | PC.NURSE ---
PT EVALUATED BY PROVIDER. PT AWAKE, ALERT AND ORIENTED X 3. SKIN WARM AND DRY. RESP UNLABORED. DENIES N/V. NO ACUTE DISTRESS NOTED. +CMS TO LOWER EXTREMITIES. AMBULATORY WITH SLOW, STEADY GAIT. PLAN IS FOR DC HOME WITH SCRIPT. PT AGREEABLE
== END 2022-03-17 20:31 | disposition home or self-care (01) ==
PROVIDERS: Emergency Provider Emergency Medicine Emergency Medical Services; PCP Nurse Practitioner Family
DX: M54.50 Low back pain, unspecified (principal); I10 Essential (primary) hypertension; F17.210 Nicotine dependence, cigarettes, uncomplicated
CPT/HCPCS: 72100; 96372; 99283; 99284; J1885

== ENCOUNTER 2022-05-13 11:48 | Outpatient (REF) | payer OTHER, SELFPAY ==
[2022-05-13 12:16] LABS: Binax Internal Control QC Valid; Binax Now Covid-19 Ag Negative (Negative)
== END 2022-05-13 11:49 | disposition home or self-care (01) ==
LOC: HO.HMGCLDS 11:48
PROVIDERS: PCP Nurse Practitioner Family
DX: J06.9 Acute upper respiratory infection, unspecified (principal); Z20.822 Contact with and (suspected) exposure to COVID-19
CPT/HCPCS: 87811; C9803

== ENCOUNTER 2023-11-30 06:07 | Emergency (ER) | payer OTHER, SELFPAY ==
[2023-11-30 06:13] VITALS: BP 145/99; PULSE 88; RESP 20; TEMP 38.1; O2SAT 97; BMI 28.3
[2023-11-30 07:33] LABS: Influenza A PCR NEGATIVE (Negative); Influenza B PCR NEGATIVE (Negative); Resp Syncy Virus RNA Qual PCR NEGATIVE (Negative); SARS COV2 PCR INHOUSE NEGATIVE (Negative)
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
[2023-11-30 09:28] LABS: IDNOW Serial# 08D9AD1C; Strep A Nucleic Acid Positive (Negative)
[2023-11-30 09:50] VITALS: BP 145/99; PULSE 88; RESP 20; TEMP 38.1; O2SAT 97
== END 2023-11-30 09:51 | disposition home or self-care (01) ==
PROVIDERS: Physician Assistant; Emergency Provider Emergency Medicine
DX: J02.0 Streptococcal pharyngitis (principal); R51.9 Headache, unspecified; R53.81 Other malaise; I10 Essential (primary) hypertension; F17.210 Nicotine dependence, cigarettes, uncomplicated; Z03.818 Encounter for observation for suspected exposure to other biological agents ruled out
CPT/HCPCS: 0241U; 87651; 99282; 99283

== ENCOUNTER 2023-12-02 09:34 | Emergency (ER) | payer OTHER, SELFPAY ==
--- NOTE | ~2023-12-02 | XR_ITS ---
EXAMINATION: XR LUMBOSACRAL SPINE CLINICAL INFORMATION: Pain COMPARISON: Previous x-ray from 2021 TECHNIQUE: Three views of the lumbosacral spine. FINDINGS: The vertebral bodies and posterior elements are normal. The disc spaces are preserved and the vertebral alignment is normal. The paraspinal soft tissues are normal. XR/XR lumbar spine 2-3V IMPRESSION: Unremarkable examination.
[2023-12-02 09:38] VITALS: BP 152/100; PULSE 70; RESP 16; TEMP 36.4; O2SAT 99; BMI 28.4
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
[2023-12-02] MEDS: Ketorolac Tromethamine 30 MG/ML VIAL IM (10:44)
[2023-12-02 10:49] LABS: Appearance Urine Clear; Color Urine Dark Yellow; Glucose Urine UA Negative (Negative); Leukocyte Esterase Urine Negative (Negative); Nitrite Urine Negative (Negative); Specific Gravity - Urine >= 1.030 (1.005-1.025); UMIC TRIGGER UACC YES; Urine Blood Negative (Negative); Urine Ketones Trace mg/dL (Negative); Urine Protein 100 (2+) mg/dL (Neg-Trace)
[2023-12-02 10:52] LABS: Bacteria Urine None Seen (None Seen); Hyaline Casts Urine 0-2 /LPF (0-2); RBC Urine 0-2 /HPF (0-2); Squamous Epithelial Cell Urine 0-2 /HPF (0-2); WBC Urine 0-5 /HPF (0-5)
[2023-12-02 12:00] VITALS: BP 154/107; PULSE 75; TEMP 36.3; O2SAT 97
[2023-12-02 12:12] VITALS: BP 154/107; PULSE 75; RESP 18; TEMP 36.3; O2SAT 97
== END 2023-12-02 12:25 | disposition home or self-care (01) ==
PROVIDERS: Physician Assistant Medical; Emergency Provider Emergency Medicine Emergency Medical Services
DX: M54.50 Low back pain, unspecified (principal); F17.200 Nicotine dependence, unspecified, uncomplicated; Z79.899 Other long term (current) drug therapy
CPT/HCPCS: 72100; 81001; 96372; 99283; 99284; J1885

== ENCOUNTER 2023-12-22 11:43 | Emergency (ER) | payer OTHER, SELFPAY ==
--- NOTE | ~2023-12-22 | XR_ITS ---
EXAMINATION: XR CHEST 2 VIEW CLINICAL INFORMATION: Chest pain COMPARISON: 10/25/2020 TECHNIQUE: PA and lateral views of the chest obtained. FINDINGS: The lungs are clear. There are no pleural effusions. The cardiomediastinal silhouette is normal. No rib fracture, bone lesion or pneumothorax is evident. XR/XR chest 2V IMPRESSION: No acute cardiopulmonary disease.
--- NOTE | 2023-12-22 11:55 | ECG_ITS ---
Test Reason : CHEST PAIN Blood Pressure : / mmHG Vent. Rate : 058 BPM Atrial Rate : 058 BPM P-R Int : 180 ms QRS Dur : 098 ms QT Int : 400 ms P-R-T Axes : 054 006 013 degrees QTc Int : 392 ms Sinus bradycardia Otherwise normal ECG When compared with ECG of 23-DEC-2021 23:23, No significant change was found Referred By: Generic ED Physician Electronically Signed By:DUTCH ROSENBAUM MD
[2023-12-22 11:57] VITALS: BP 128/93; PULSE 69; RESP 19; TEMP 36.6; O2SAT 98; BMI 28.3
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
[2023-12-22 12:16] LABS: MANUAL DIFF FLAG NO
[2023-12-22 12:18] LABS: Basophils Percent Auto 0.4 % (0-2); Eosinophils Absolute Auto 0.1 X10*3/uL (0.0-0.4); Hematocrit 35.4 % (42.0-52.0); Hemoglobin 12.3 g/dl (14.0-18.0); Imm Gran Abs Auto 0.01 X10*3/uL (0.00-0.03); Imm Gran Pct Auto 0.1 % (0.0-0.4); Lymphocytes Absolute Auto 2.7 X10*3/uL (1.2-4.9); Lymphocytes Percent Auto 39.1 % (20-40); Mean Corpuscular HGB Conc 34.7 g/dl (31.0-36.0); Mean Corpuscular Hemoglobin 29.4 pg (27.0-33.0); Mean Corpuscular Volume 84.5 fL (80.0-98.0); Monocytes Absolute Auto 0.4 X10*3/uL (0.1-1.2); Neutrophils Absolute Auto 3.6 x10*3/uL (2.0-8.3); Neutrophils Percent Auto 53.4 % (45-73); Platelet Count 269 X10*3/uL (160-400); Red Blood Count 4.19 X10*6/uL (4.60-5.80); Red Cell Distribution Width 13.2 % (11.0-16.0); White Blood Count 6.8 X10*3/uL (4.8-10.8)
[2023-12-22 12:30] LABS: Anion Gap 11 (12-20); Blood Urea Nitrogen 21 mg/dL (9-16); Calcium 9.6 mg/dL (8.4-10.2); Carbon Dioxide 28 mmol/L (22-29); Chloride 106 mmol/L (96-108); Creatinine Clr Calc Pharmacy 84.6; Estimated Glomerular Filt Rate > 60; Glucose Random 85 mg/dL (60-115); Potassium 4.2 mmol/L (3.3-5.1); Sodium 141 mmol/L (135-145)
[2023-12-22 12:39] LABS: Troponin-I High Sensitivity < 2.7 ng/L (<3.5-35.0)
[2023-12-22 18:36] LABS: Troponin-I High Sensitivity < 2.7 ng/L (<3.5-35.0)
[2023-12-22 19:02] VITALS: BP 145/96; PULSE 52; RESP 16; TEMP 36.3; O2SAT 100
[2023-12-22 23:10] VITALS: BP 135/82; PULSE 55; RESP 16; TEMP 36.4; O2SAT 100
[2023-12-22] MEDS: Ketorolac Tromethamine 30 MG/ML VIAL IM (23:31)
[2023-12-22 23:36] VITALS: BP 135/82; PULSE 55; RESP 16; TEMP 36.4; O2SAT 100
== END 2023-12-22 23:37 | disposition home or self-care (01) ==
PROVIDERS: Physician Assistant Medical; Emergency Provider Emergency Medicine
DX: R07.9 Chest pain, unspecified (principal); I10 Essential (primary) hypertension; F17.210 Nicotine dependence, cigarettes, uncomplicated; F12.90 Cannabis use, unspecified, uncomplicated
CPT/HCPCS: 36415; 71046; 80048; 84484; 85025; 93005; 96372; 99284; J1885

== ENCOUNTER → 2023-12-22 11:55 | Outpatient (BNV) | payer SELFPAY | PROVIDERS: Visit Provider Internal Medicine Cardiovascular Disease | DX: R07.9 Chest pain, unspecified (principal) | CPT/HCPCS: 93010 ==

== ENCOUNTER 2024-03-09 15:16 | Outpatient (AMB) | payer SELFPAY ==
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
[2024-03-09 15:24] VITALS: BP 160/110; BMI 28.6
[2024-03-09 16:00] VITALS: BP 148/100
== END 2024-03-09 16:28 | disposition home or self-care (01) ==
PROVIDERS: Visit Provider Physician Assistant
DX: I10 Essential (primary) hypertension (principal)
CPT/HCPCS: 99214

== ENCOUNTER → 2024-03-12 15:00 | Outpatient (BNVA) | payer SELFPAY | PROVIDERS: PCP Nurse Practitioner Family; Visit Provider Nurse Practitioner Family | DX: Z01.89 Encounter for other specified special examinations (principal) ==

== ENCOUNTER 2024-04-17 15:25 | Outpatient (AMB) | payer OTHER, SELFPAY ==
[2024-04-17 15:27] VITALS: BP 138/94; PULSE 59; O2SAT 98; BMI 30.4
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
== END 2024-04-17 16:01 | disposition home or self-care (01) ==
PROVIDERS: PCP Nurse Practitioner Family; Visit Provider Nurse Practitioner Family
DX: Z00.00 Encounter for general adult medical examination without abnormal findings (principal); I10 Essential (primary) hypertension; M31.4 Aortic arch syndrome [Takayasu]

== ENCOUNTER → 2024-04-17 15:25 | Outpatient (BNVA) | payer SELFPAY | PROVIDERS: PCP Nurse Practitioner Family; Visit Provider Nurse Practitioner Family | DX: Z00.00 Encounter for general adult medical examination without abnormal findings (principal); I10 Essential (primary) hypertension; I15.0 Renovascular hypertension; M31.4 Aortic arch syndrome [Takayasu]; Z79.899 Other long term (current) drug therapy | CPT/HCPCS: 96127; 99395 ==

== ENCOUNTER 2024-12-11 11:18 | Emergency (ER) | payer SELFPAY ==
--- NOTE | ~2024-12-11 | XR_ITS ---
EXAMINATION: XR CHEST CLINICAL INFORMATION: cp COMPARISON: 12/22/2023. TECHNIQUE: Frontal view of the chest was obtained. FINDINGS: The cardiac, hilar, and mediastinal contours are normal. The lungs are clear bilaterally. No pneumothorax or effusion. No focal osseous or soft tissue abnormality. XR/XR chest 1V IMPRESSION: No active pulmonary disease. Electronically signed by: Mina Nicole MD 12/11/2024 12:53 PM EDT
--- NOTE | 2024-12-11 11:19 | ECG_ITS ---
Test Reason : CP Blood Pressure : */* mmHG Vent. Rate : 64 BPM Atrial Rate : 64 BPM P-R Int : 178 ms QRS Dur : 100 ms QT Int : 390 ms P-R-T Axes : 44 -1 4 degrees QTcB Int : 402 ms Normal sinus rhythm Normal ECG When compared with ECG of 22-Dec-2023 12:00, No significant change was found Referred By: Generic ED Physician Electronically Signed By: Yevgeniy Fuller
[2024-12-11 11:29] VITALS: BP 133/81; PULSE 55; RESP 14; TEMP 36.8; O2SAT 96; BMI 30.2
[2024-12-11 11:32] VITALS: BP 112/73; PULSE 57; PULSE 60; RESP 12; O2SAT 97
[2024-12-11 12:00] VITALS: BP 125/74; PULSE 52; RESP 12; TEMP 36.7; O2SAT 98
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
[2024-12-11 12:39] LABS: MANUAL DIFF FLAG NO
[2024-12-11 12:41] LABS: Basophils Percent Auto 0.3 % (0-2); Eosinophils Absolute Auto 0.1 X10*3/uL (0.0-0.4); Eosinophils Percent Auto 1.4 % (0-4); Hematocrit 34.6 % (42.0-52.0); Imm Gran Abs Auto 0.02 X10*3/uL (0.00-0.03); Imm Gran Pct Auto 0.3 % (0.0-0.4); Lymphocytes Absolute Auto 2.7 X10*3/uL (1.2-4.9); Lymphocytes Percent Auto 41.2 % (20-40); Mean Corpuscular HGB Conc 34.7 g/dl (31.0-36.0); Mean Corpuscular Hemoglobin 28.5 pg (27.0-33.0); Mean Corpuscular Volume 82.2 fL (80.0-98.0); Mean Platelet Volume 10.7 fL (9.4-12.4); Monocytes Absolute Auto 0.6 X10*3/uL (0.1-1.2); Monocytes Percent Auto 9.1 % (2-11); Neutrophils Absolute Auto 3.1 x10*3/uL (2.0-8.3); Neutrophils Percent Auto 47.7 % (45-73); Platelet Count 211 X10*3/uL (160-400); Red Blood Count 4.21 X10*6/uL (4.60-5.80); Red Cell Distribution Width 12.9 % (11.0-16.0); White Blood Count 6.6 X10*3/uL (4.8-10.8)
[2024-12-11 12:56] LABS: Alanine Aminotransferase 27 U/L (0-40); Albumin Level 4.1 g/dL (3.5-5.0); Alkaline Phosphatase 31 U/L (39-117); Anion Gap 12 (12-20); Aspartate Amino Transferase 29 U/L (5-37); Bilirubin Direct 0.1 mg/dL (0.0-0.5); Bilirubin Total 0.3 mg/dL (0.0-1.0); Blood Urea Nitrogen 21 mg/dL (9-16); Calcium 9.5 mg/dL (8.4-10.2); Carbon Dioxide 28 mmol/L (22-29); Chloride 106 mmol/L (96-108); Creatinine Clr Calc Pharmacy 100.8; Estimated Glomerular Filt Rate > 60; Glucose Random 79 mg/dL (60-115); Potassium 4.1 mmol/L (3.3-5.1); Sodium 142 mmol/L (135-145); Total Protein 7.3 g/dL (6.5-8.0)
[2024-12-11 13:06] LABS: Troponin-I High Sensitivity < 2.7 ng/L (<3.5-35.0)
--- OUTSIDE RECORDS SUMMARY | 2024-12-11 13:37 | XMS_ITS | Encounter Summary ---
Author Organization [facility] Address [address] [place] [address] Phone Care Team Providers Care Coin Teller Name Role Phone Conner Talley MD Primary Care Provider [phone] Encounter Details Date Type Department Care Team (Late st Contact Info) Description 08/26/2020 Orders Only [facility] [address] [place] [address] ProviderAracely MD Social History Tobacco Use Types Packs/Day Years Used Date Smoking Tobacco: Some Days Alcohol Use Standard Drinks/Week Comments Yes 0 (1 standard drink = 0.6 oz pure alcohol) Alcoholic Drinks/day: Occasional social drink Sex and Gender Information Value Date Recorded Sex Assigned at Not on file Legal Sex Male 4:56 PM EST Gender Identity Not on file Sexual Orientation Not on file documented as of this encounter Plan of Treatment Not on file documented as of this encounter Procedures Procedure Name Priority Date/Time Associated Diagnosis Comments EXT RESULT ENTRY Routine 08/26/2020 EXT RESULT ENTRY Routine 08/26/2020 documented in this encounter Results * EXT RESULT ENTRY (08/26/2020) Historical Provider LAB BLOOD ORDERABLES Nilda l Result * EXT RESULT ENTRY (08/26/2020) Historical Provider LAB BLOOD ORDERABLES Nilda l Result documented in this encounter Visit Diagnoses Not on filedocumented in this encounter Care Teams Coin Teller Relationship Specialty Start Date End Date Conner Talley MD [address] [place] [address] PCP - General 07/07/20 documented as of this encounter
[2024-12-11 14:00] VITALS: BP 119/86; PULSE 55; RESP 14; O2SAT 99
[2024-12-11 14:32] LABS: Troponin-I High Sensitivity < 2.7 ng/L (<3.5-35.0)
[2024-12-11 14:55] VITALS: BP 119/86; PULSE 55; RESP 14; TEMP 36.7; O2SAT 99
== END 2024-12-11 14:56 | disposition home or self-care (01) ==
PROVIDERS: Emergency Provider Emergency Medicine Emergency Medical Services; PCP Nurse Practitioner Family
DX: R07.9 Chest pain, unspecified (principal); I10 Essential (primary) hypertension; Z79.899 Other long term (current) drug therapy
CPT/HCPCS: 36415; 71045; 80048; 80076; 84484; 85025; 93005; 99283; 99285

== ENCOUNTER → 2024-12-11 11:19 | Outpatient (BNV) | payer OTHER, SELFPAY | PROVIDERS: Emergency Provider Emergency Medicine Emergency Medical Services; PCP Nurse Practitioner Family; Visit Provider Internal Medicine Cardiovascular Disease | DX: R07.9 Chest pain, unspecified (principal) | CPT/HCPCS: 93010 ==

== ENCOUNTER → 2024-12-11 12:22 | Outpatient (BNV) | payer OTHER, SELFPAY | PROVIDERS: Emergency Provider Emergency Medicine Emergency Medical Services; PCP Nurse Practitioner Family; Visit Provider Radiology Diagnostic Radiology | DX: R07.9 Chest pain, unspecified (principal) | CPT/HCPCS: 71045 ==